=== PATIENT | female | born 1990 | race Two or more races ===

== ENCOUNTER 2024-03-21 22:45 | Emergency (ER) | payer OTHER ==
[~2024-03-21] VITALS: Ht 162.6 cm; Wt 54.4 kg
[2024-03-21 22:53] VITALS: BP 109/72; O2SAT 98
== END 2024-03-22 01:52 | disposition home or self-care (01) ==
LOC: ER 22:47
DX: S00.83XA Contusion of other part of head, initial encounter (principal); X58.XXXA Exposure to other specified factors, initial encounter; Y93.89 Activity, other specified; Y92.89 Other specified places as the place of occurrence of the external cause; Y99.8 Other external cause status